=== PATIENT | male | born 1975 ===

== ENCOUNTER 2020-05-27 16:59 | Emergency (ER) | payer SELFPAY ==
[2020-05-27] MEDS ORDERED: Acetaminophen/HYDROcodone 325-5 MG Tab PO ONE (17:43)
--- NOTE | 2020-05-27 17:43 | EDM.PDOC ---
ED HPI GENERAL MEDICAL PROBLEM - General Chief Complaint: Lower Extremity Injury/Pain Stated Complaint: INJURY RT LEG Time Seen by Provider: 05/27/20 17:04 Source of Information: Reports: Patient History Limitations: Reports: No Limitations - History of Present Illness INITIAL COMMENTS - FREE TEXT/NARRATIVE: HISTORY AND PHYSICAL: History of present illness: Patient is a 44-year-old male who presents to the emergency room with complaints of right anterior thigh pain. He states while at a softball game he was running very quickly and abruptly when he heard a "tear" to his quadricep muscle. He has pain with engaging the quadricep muscle such as standing up or having to sit down. He denies any fall or direct injury to the leg. Describes feeling a ball of tissue to the mid anterior thigh. Patient denies any fever, chills, headache, change in vision, syncope or near syncope. Denies any chest pain, back pain, shortness of breath or cough. Denies any abdominal pain, nausea, vomiting, diarrhea, constipation or dysuria. Denies any testicular pain, redness or swelling. Patient has been eating and drinking appropriately. Review of systems: As per history of present illness and below otherwise all systems reviewed and negative. Past medical history: As per history of present illness and as reviewed below otherwise noncontributory. Surgical history: As per history of present illness and as reviewed below otherwise noncontributory. Social history: See social history for further information Family history: As per history of present illness and as reviewed below otherwise noncontributory. Physical exam: General: Well-developed and well-nourished 44-year-old male. Alert and oriented. Nontoxic-appearing and in no acute distress. HEENT: Atraumatic, normocephalic, pupils equal and reactive bilaterally, negative for conjunctival pallor or scleral icterus, mucous membranes moist, TMs normal bilaterally, throat clear, neck supple, nontender, trachea midline. No drooling or trismus noted. No meningeal signs. No hot potato voice noted. Lungs: Clear to auscultation, breath sounds equal bilaterally, chest nontender. Heart: S1S2, regular rate and rhythm without overt murmur Abdomen: Soft, nondistended, nontender. Negative for masses or hepatosplenomegaly. Negative for costovertebral tenderness. Pelvis: Stable nontender. C-spine/Back: No pinpoint vertebral tenderness upon palpation. No crepitus, step-offs or obvious deformities. Patient is ambulatory into the emergency room without difficulty or deficit. Able to rock back on heels and walk on toes. Denies any urinary or fecal incontinence. Denies any numbness, tingling or saddle paresthesia. No concerns of serious infection, fracture or cord compression, or cauda equina syndrome. Deep tendon reflexes brisk bilaterally. Skin: Intact, warm, dry. No lesions or rashes noted. Extremities: Pain with palpation of the mid anterior right thigh. Denies any right sided hip, knee, tib-fib, ankle or foot pain moves all extremities per self without difficulty or deficits, negative for cords or calf pain. Negative foot drop. Positive CMS neurovascular unremarkable. Neuro: Awake, alert, oriented. Cranial nerves II through XII unremarkable. Cerebellum unremarkable. Motor and sensory unremarkable throughout. Exam nonfocal. Notes: Patient's leg appears normal, there is no redness or soft tissue swelling noted. He has no bony prominence pain. He has a lot of tenderness with palpation of the mid anterior quadricep on the right. I will get an ultrasound to rule out tear. [place] given for comfort as the procedure may be uncomfortable, given he was very uncomfortable with my light palpation. Ultrasound report shows no acute findings in the white right quadricep muscle. If patient continues to be symptomatic an MRI would be more sensitive to rule out muscle strain versus muscle tear. This information was shared with the patient. He is from [place], will follow-up with Ortho in [facility] or [place] as our orthopedic provider is out over the next few weeks. Will give crutches and Lucien wrap for comfort and to be nonweightbearing. Signs and symptoms that would prompt him to return to the emergency room were reviewed and discussed. Follow-up, medication and supportive care measures were reviewed and discussed. Voices understanding and is agreeable to plan of care. Denies any further questions or concerns at this time. Diagnostics: [employer]: Crown [place], lucien wrap, crutches Prescription: Crown [place] (#20) Impression: Right thigh injury Plan: 1. Ultrasound report shows no acute findings in the white right quadricep muscle. If you continued to be symptomatic an MRI would be more sensitive to rule out muscle strain versus muscle tear. Rest, ice, elevate the affected extremity. Please use the crutches as directed. 2. Tylenol and/or Ibuprofen as needed for pain management. 3. Follow up with the Orthopedic provider as we discussed. Return to the ED as needed and as discussed. Definitive disposition and diagnosis as appropriate pending reevaluation and review of above. Right thigh Pain Score (Numeric/FACES): 7 - Related Data Allergies Allergy/AdvReac Type Severity Reaction Status Date / Time No Known Allergies Allergy Verified 05/27/20 17:40 Home Meds: Home Meds . [No Known Home Meds] 05/27/20 [History] Review of Systems - Review of Systems Review Of Systems: Comprehensive ROS is negative, except as noted in HPI. ED EXAM, GENERAL - Physical Exam Exam: See Below (See dictation) Course - Vital Signs Last Recorded V/S: Last Vital Signs Temp 96.1 F L 05/27/20 17:41 Pulse 90 05/27/20 17:41 Resp 18 05/27/20 17:41 BP 128/76 05/27/20 17:41 Pulse Ox 99 05/27/20 17:41 - Orders/Labs/Meds Orders: Active Orders 24 hr Category Date Time Status DME for Discharge [COMM] Stat Oth 05/27/20 19:26 Ordered Meds: Medications Discontinued Medications Generic Name Dose Route Start Last Admin Trade Name Marquis PRN Reason Stop Dose Admin Hydrocodone Bitart/Acetaminophen 1 tab 05/27/20 17:43 05/27/20 19:10 [place] 325-5 Mg PO 05/27/20 17:44 1 tab ONETIME ONE Administration Departure - Departure Time of Disposition: 19:29 Disposition: Home, Self-Care 01 Clinical Impression: Injury of right thigh Qualifiers: Encounter type: initial encounter Qualified Code(s): S79.921A - Unspecified injury of right thigh, initial encounter - Discharge Information Instructions: Muscle Strain, [id number] Referrals: PCP,None [Primary Care Provider] - Forms: ED Department Discharge Additional Instructions: The following information is given to patients seen in the emergency department who are being discharged to home. This information is to outline your options for follow-up care. We provide all patients seen in our emergency department with a follow-up referral. The need for follow-up, as well as the timing and circumstances, are variable depending upon the specifics of your emergency department visit. If you don't have a primary care physician on staff, we will provide you with a referral. We always advise you to contact your personal physician following an emergency department visit to inform them of the circumstance of the visit and for follow-up with them and/or the need for any referrals to a consulting specialist. The emergency department will also refer you to a specialist when appropriate. This referral assures that you have the opportunity for follow-up care with a specialist. All of these measure are taken in an effort to provide you with optimal care, which includes your follow-up. Under all circumstances we always encourage you to contact your private physician who remains a resource for coordinating your care. When calling for follow-up care, please make the office aware that this follow-up is from your recent emergency room visit. If for any reason you are refused follow-up, please contact the [facility] Emergency Department at and asked to speak to the emergency department charge nurse. Dr Conner, Orthopedist [facility] [address] [place] [address] Orthopedics at [facility] [address] [place] [address] [facility] [address] [place] [address] Thank you for choosing the [facility] emergency department in [place] for your medical needs today. It was a pleasure caring for you. You were seen in the emergency department for suspected right thigh muscle injury. 1. Ultrasound report shows no acute findings in the white right quadricep muscle. If you continued to be symptomatic an MRI would be more sensitive to rule out muscle strain versus muscle tear. Rest, ice, elevate the affected extremity. Please use the crutches as directed. 2. Tylenol and/or Ibuprofen as needed for pain management. 3. Follow up with the Orthopedic provider as we discussed. Return to the ED as needed and as discussed. Sepsis Event Note (ED) - Focused Exam Vital Signs: Vital Signs Temp Pulse Resp BP Pulse Ox 05/27/20 17:41 96.1 F L 90 18 128/76 99 - My Orders Last 24 Hours: My Active Orders 05/27/20 19:26 DME for Discharge [COMM] Stat - Assessment/Plan Last 24 Hours: My Active Orders 05/27/20 19:26 DME for Discharge [COMM] Stat
--- NOTE | 2020-05-27 19:18 | US ---
Right quadriceps ultrasound: Multiple real-time images were obtained of the anterior thigh. No edema or fluid seen within the muscle. Impression: 1. No ultrasound finding noted within the right quadriceps muscle. 2. If patient continues to be symptomatic, MRI would be more sensitive for muscle strain or muscle tear. Diagnostic code #1 This report was dictated in MDT
== END 2020-05-27 19:45 | disposition home or self-care (01) ==
LOC: MW.ED 16:59
DX: S79.921A Unspecified injury of right thigh, initial encounter (principal); X50.3XXA Overexertion from repetitive movements, initial encounter; Y93.64 Activity, baseball
CPT/HCPCS: 76881; 99283; A9270